=== PATIENT | female | born 1960 | race Caucasian/White ===

== ENCOUNTER 2016-05-05 13:55 | Inpatient (IN) ==
[2016-05-05 14:36] LABS: BASO% 0.1 % (0.0-0.8); EOS# 0.05 X1000 (0.0-0.7); EOS% 0.7 % (0.0-10.0); HEMATOCRIT 48.2 % (37.0-47.0); HEMOGLOBIN 15.1 g/dL (12.0-16.0); IMM GRAN# 0.03 X1000 (0.0-0.04); IMM GRAN% 0.4 % (0.0-0.5); LYMPH# 1.12 X1000 (1.2-3.4); MCH 33.2 PG (27-31); MCHC 31.3 g/dL (33-37); MCV 105.9 FL (81-99); MONO# 0.43 X1000 (0.11-0.59); MONO% 5.8 % (1.7-9.3); MPV 10.9 FL (7.4-10.4); PLT 170 X1000 (130-400); RBC 4.55 XMIL (4.2-5.4)
[2016-05-05 14:46] LABS: AGAP 9; ALBUMIN 3.7 g/dL (3.5-5.0); ALKALINE PHOSPHATASE 85 U/L (32-104); BUN 14 mg/dL (8-22); CALCIUM 8.5 mg/dL (8.8-10.2); CHLORIDE 95 mmol/L (98-107); CK PROFILE 111 U/L (24-173); COSMO 285; GOT 6 U/L (10-30); GPT 14 U/L (10-36); POTASSIUM 4.1 mmol/L (3.5-5.1); SODIUM 139 mmol/L (136-145); TCO2 35 mmol/L (25-35); TOTAL BILIRUBIN 0.47 mg/dL (0.20-1.00); TOTAL PROTEIN 6.6 g/dL (6.3-8.3)
[2016-05-05 14:48] LABS: INR 0.97; PROTIME 10.2 Seconds (9.2-11.7); PTT 25.7 Seconds (22.0-36.0)
[2016-05-05 15:08] LABS: MANUAL DIFF NEEDED? NO
--- NOTE | 2016-05-05 15:11 | Diag Imaging Result Document ---
PROCEDURE NAME: HEAD W/O CONTRAST - 05/05/2016 CT HEAD WITHOUT CONTRAST: COMPARISON: None available. FINDINGS: There is no discrete intracranial mass, mass effect, or intracranial hemorrhage. There is no evidence of hydrocephalus. There is no evidence of acute infarct given the limited sensitivity of CT versus MRI. The surrounding soft tissues and bony structures are essentially unremarkable. IMPRESSION: No evidence of acute intracranial pathology.
[2016-05-05 15:23] LABS: URINE CULTURE NEEDED? NO; URINE SOURCE CLEAN CATCH
[2016-05-05 15:38] LABS: UR AMPHETAMINES QUAL NONE DETECTED (NONE DETECT); UR BARBITUATES QUAL NONE DETECTED (NONE DETECT); UR BENZODIAZEPIN QUAL NONE DETECTED (NONE DETECT); UR CANNABINOIDS QUAL NONE DETECTED (NONE DETECT); UR COCAINE QUAL NONE DETECTED (NONE DETECT); UR METHADONE QUAL NONE DETECTED (NONE DETECT); UR OPIATES QUAL PRESUMPTIVE POSITIVE (NONE DETECT); UR OXYCODONE QUAL NONE DETECTED (NONE DETECT); UR PCP QUAL NONE DETECTED (NONE DETECT)
[2016-05-05 15:42] LABS: BILIRUBIN URINE NEGATIVE (NEGATIVE); BLOOD URINE TRACE (NEGATIVE); COLOR YELLOW; GLUCOSE URINE >1000 mg/dL (NEGATIVE); LEUKOCYTES URINE NEGATIVE (NEGATIVE); NITRITE URINE NEGATIVE (NEGATIVE); PH URINE 7.5; PROTEIN URINE NEGATIVE (NEGATIVE); SP GRAVITY URINE 1.025; TURBIDITY URINE CLEAR (CLEAR); UROBILINOGEN URINE 2 mg/dL (NORMAL)
[2016-05-05 15:44] LABS: URINE MICRO REVIEW NEEDED? YES
[2016-05-05 15:47] LABS: UR EPITHELIAL CELLS <10 /HPF (<10); URINE BACTERIA NEGATIVE /HPF; URINE RBC <10 /HPF (<10); URINE WBC <10 /HPF (<10)
[2016-05-05 15:52] LABS: URINE CASTS NONE SEEN; URINE CRYSTALS NONE SEEN; URINE SMALL ROUND CELLS NONE SEEN
--- NOTE | 2016-05-05 16:20 | PROVIDER DOCUMENTATION ---
HPI-Neurological Disorder - General Source: patient, family () - History of Present Illness-Neuro Headache Location: denies: frontal, temporal, occipital, parietal, global Severity: reports: mild Onset/Duration: reports: unsure Timing: reports: still present Context: reports: other (confusion) Character of Altered Mental Status: reports: confused, agitated, trouble concentrating. denies: disoriented, combative, unresponsive, seizure activity, decreased responsiveness, unchanged from baseline Any recent trauma/injury?: reports: none Character of Deficits: denies: new weakness, altered sensation, vision problem/ glaucoma, impaired speech, impaired swallowing, decreased ability to stand, decreased ability to walk, falling New weakness or altered sensation location:: reports: none Cognitive Baseline: alert, oriented x3 Gait Baseline: walks without assistance Associated Symptoms: denies: short of breath, headache, decreased ability to walk or stand, fainting, dizziness, confusion, chest pain, neck/back pain, fatigue, fever/chills, insomnia, loss of consciousness, muscle spasms, nausea, numbness in legs/feet, paresthesia, diaphoretic, ringing in ears, seizures, sleepy, slurred speech, tingling in legs/feet, trouble walking, vomiting, vision changes, weakness Similar Symptoms Previously?: Yes Recently seen or treated by another doctor?: No <Olga Knapp - Last Filed: 05/05/16 16:38> <Abdulaziz Taveras - Last Filed: 05/05/16 17:19> - General Chief Complaint: Altered Mental Status Stated Complaint: confusion/trouble remembering Time Seen by Provider: 05/05/16 16:05 Allergies/Adverse Reactions: Patient Allergies Allergy/AdvReac Type Severity Reaction Status Date / Time acetaminophen Allergy Mild VOMITING Verified 07/11/15 19:28 [From Darvocet-N 100] codeine [Codeine] Allergy Mild VOMIT Verified 07/11/15 19:28 propoxyphene napsylate * Allergy Mild VOMITING Verified 07/11/15 19:28 [From Darvocet-N 100] Penicillins Allergy Unknown Verified 07/11/15 19:28 Home Medications: Home Medication List Medication Instructions Recorded Confirmed Last Taken Type Albuterol Sulfate [Proair Hfa] 8.5 gm INH QAM 07/11/15 05/05/16 05/05/16 07:00 History Amiodarone [Cordarone] 200 mg PO DAILY 07/11/15 05/05/16 05/05/16 07:00 History Aspirin 325 mg PO DAILY 07/11/15 05/05/16 05/05/16 07:00 History Ergocalciferol (Vitamin D2) 50,000 unit PO DIRECTED 07/11/15 05/05/16 07:00 History [Vitamin D2] Fluticasone/Salmeterol [Advair 1 each INH DIRECTED 07/11/15 05/05/16 11:00 History 250-50 Diskus] Furosemide 40 mg PO QAM 07/11/15 05/05/16 05/05/16 07:00 History LISINOpril [Prinivil] 10 mg PO DAILY 07/11/15 05/05/16 05/05/16 07:00 History Lorazepam 1 mg PO QPM 07/11/15 05/05/16 05/04/16 20:00 History Omeprazole [Prilosec] 40 mg PO QAM 07/11/15 05/05/16 05/05/16 07:00 History SIMVAstatin [Zocor] 20 mg PO QPM 07/11/15 05/05/16 05/04/16 20:00 History Tiotropium [place] Inhaler 1 puff INH RTDAILY 07/11/15 05/05/16 05/05/16 07:00 History [Spiriva] Insulin Glargine [Lantus] 30 unit SUBQ BID #1 insuln.pen 07/17/15 05/05/1605/05 07:00 Rx Metformin [Glucophage] 1,000 mg PO BID CC #60 tablet 07/17/15 05/05/16 05/05/16 07:00 Rx Hydrocodone/APAP 10 mg/325 mg 1 each PO Q4H PRN PRN #30 tablet 01/22/16 Unknown Rx [[place]-10] - History of Present Illness-Neuro Nature of Presenting Problem: Pt is 55 y/o F presents to the ED with confusion and forgetting things. Pt states was admitted and put in a coma due to not being able to handle her carbon dioxide. Pt states having chronic COPD. Pt states she is a smoker. Pt denies F. Pt states she has been fighting with more due to forgetting things. (Olga Knapp) Review of Systems - Adult - REVIEW OF SYSTEMS - ADULT Constitutional: denies: chills, fever Eyes: denies: blurred vision, double vision Ears, Nose, Mouth & Throat: denies: ear pain, nose pain, throat pain Cardiovascular: denies: chest pain, heart murmur, irregular heart rate Respiratory: denies: cough, shortness of breath, wheezing Gastrointestinal: denies: abdominal pain, diarrhea, frequent heartburn, nausea, vomiting Genitourinary: denies: dysuria, hematuria Musculoskeletal: denies: bone pain, joint pain, neck pain Integumentary: denies: hives, itching, rash Neurological: reports: other (confusion). denies: dizziness/vertigo, headache/ migraines, slurred speech, syncope Psychiatric: reports: no symptoms reported Endocrine: reports: no symptoms reported Hematologic/Lymphatic: reports: no symptoms reported Allergic/Immunologic: reports: no symptoms reported All Other Systems: Reviewed and Negative <Olga Knapp - Last Filed: 05/05/16 16:38> Past History - Adult - PAST MEDICAL HISTORY-ADULT Review of Records: reports: Nursing Assessment Review, Medications Reviewed, Social history reviewed & non-contributory. Major Childhood Illnesses: reports: denies history Cardiovascular: reports: arrhythmia, congenital heart disease, CHF, HTN, hyperlipidemia Respiratory: reports: asthma, COPD Gastrointestinal: reports: denies history Obstetrical/Gynecological: reports: denies history Genitourinary: reports: denies history Musculoskeletal: reports: denies history Neurological: reports: denies history Endocrine/Immune: reports: Diabetes Other Conditions: reports: denies history - PRIOR SURGERIES/PROCEDURES Surgical/Procedure History: reports: reviewed, not pertinent - PRIOR HOSPITALIZATIONS Prior Hospitalizations: reports: for similar symptoms - IMMUNIZATION STATUS Childhood Immunizations: See Nurse Assessment Flu Vaccine: See Nurse Assessment - FAMILY HISTORY Family History: reviewed, not pertinent - SOCIAL HISTORY Smoking: cigarettes, greater than 1 pack/day Provider spent 3-5 mins advising pt. on dangers of tobacco.: discussed smoking cessation Substance Use: denies Living Situation: family <Olga Knapp - Last Filed: 05/05/16 16:38> Physical Exam- Neurological - Physical Exam-Neuro Initial Vital Signs Reviewed: Yes General Appearance: appears well, alert, no apparent distress, obese, anxious Eye Exam: bilateral eye: normal inspection, PERRL, EOMI HENMT: normocephalic/atraumatic, moist mucous membranes, normal ENT inspection, TMs normal, pharynx normal Head Injury: no evidence of injury Neck: non-tender, full range of motion, supple, normal inspection Respiratory: chest non-tender, lungs clear, normal breath sounds, no pleuratic chest pain, no respiratory distress Cardiovascular: normal peripheral pulses, regular rate, rhythm, no edema, no gallop, no JVD, no murmur Abdominal Exam: normal bowel sounds, non tender, soft, no organomegaly, no pulsatile mass Lymphatic: no adenopathy Extremity: normal range of motion, non-tender, normal gait, normal inspection, no pedal edema, no calf tenderness, normal capillary refill resolution specialist Exam: normal hearing, normal speech, PERRL Coordination/Gait: normal finger to nose, normal gait Motor/Sensory: no motor deficit, no sensory deficit, no pronator drift Neurologic: grossly normal Integumentary: normal color, normal turgor, warm/dry Psych/Mental Status: normal mood/affect, oriented x 3 <RaOlga - Last Filed: 05/05/16 16:38> Progress - CT/MRI 1 CT Study: Head Impression: Normal CT Results: NAP <Olga Knapp - Last Filed: 05/05/16 16:38> - XRAY 1 XRAY Study: Chest Comparison with other Films: no changes - CONSULTS/PCP/HOSPITALIST Notification #1 *Consult/PCP/Hospitalist*: Dr. garza Time Discussed: 17:18 Consult Disposition: Admit <Abdulaziz Taveras - Last Filed: 05/05/16 17:19> - PLAN OF CARE/RESULTS Progress/Plan/Lab Results: Laboratory Tests 05/05/16 05/05/16 05/05/16 14:02 14:03 14:03 WBC RBC Hgb Hct MCV MCH MCHC RDW Std Deviation Plt Count MPV Immature Gran % (Auto) Neut % (Auto) Lymph % (Auto) [place] % (Auto) Eos % (Auto) Baso % (Auto) Immature Gran # (Auto) Neut # (Auto) Lymph # (Auto) [place] # (Auto) Eos # (Auto) Baso # (Auto) Segmented Neutrophils PT INR PTT ([place] FS) Sodium Potassium Chloride Carbon Dioxide Anion Gap BUN Creatinine Estimated GFR/1.73 m2 BUN/Creatinine Ratio Glucose POC Glucose Calculated Osmolality Calcium Total Bilirubin AST ALT Alkaline Phosphatase Creatine Kinase Troponin T < 0.010 Total Protein Albumin Globulin Albumin/Globulin Ratio Urine Source CLEAN CATCH Urine Color YELLOW Urine Turbidity CLEAR Urine pH 7.5 Ur Specific [place] 1.025 Urine Protein NEGATIVE Ur Glucose (Stick) >1000 A Ur Ketones (Stick) TRACE A Urine Blood TRACE A Urine Nitrite NEGATIVE Urine Bilirubin NEGATIVE Urobilinogen Dipstick 2 A Urine Leukocytes NEGATIVE Urine WBC (Auto) <10 Urine RBC (Auto) <10 U Epithel Cells (Auto) <10 Urine Bacteria (Auto) NEGATIVE Urine Crystals NONE SEEN Small Round Cells NONE SEEN Urine Casts NONE SEEN Urine Yeast-like Cells PRESENT Urine Opiates Screen PRESUMPTIVE POSITIVE A Ur Oxycodone Screen NONE DETECTED Ur Methadone, Qual NONE DETECTED Ur Barbiturates Screen NONE DETECTED Ur Phencyclidine Scrn NONE DETECTED Ur Amphetamines Screen NONE DETECTED U Benzodiazepines Scrn NONE DETECTED Urine Cocaine Screen NONE DETECTED U Cannabinoids Screen NONE DETECTED Plasma/Serum Ethyl Alc 05/05/16 05/05/16 05/05/16 14:08 14:09 14:09 WBC 7.47 RBC 4.55 Hgb 15.1 Hct 48.2 H MCV 105.9 H MCH 33.2 H MCHC 31.3 L RDW Std Deviation 14.0 Plt Count 170 MPV 10.9 H Immature Gran % (Auto) 0.4 Neut % (Auto) 78.0 H Lymph % (Auto) 15.0 L [place] % (Auto) 5.8 Eos % (Auto) 0.7 Baso % (Auto) 0.1 Immature Gran # (Auto) 0.03 Neut # (Auto) 5.83 Lymph # (Auto) 1.12 L [place] # (Auto) 0.43 Eos # (Auto) 0.05 Baso # (Auto) 0.01 Segmented Neutrophils Not Reportable PT INR PTT ([place] FS) Sodium Potassium Chloride Carbon Dioxide Anion Gap BUN Creatinine Estimated GFR/1.73 m2 BUN/Creatinine Ratio Glucose POC Glucose 200 H Calculated Osmolality Calcium Total Bilirubin AST ALT Alkaline Phosphatase Creatine Kinase Troponin T Total Protein Albumin Globulin Albumin/Globulin Ratio Urine Source Urine Color Urine Turbidity Urine pH Ur Specific [place] Urine Protein Ur Glucose (Stick) Ur Ketones (Stick) Urine Blood Urine Nitrite Urine Bilirubin Urobilinogen Dipstick Urine Leukocytes Urine WBC (Auto) Urine RBC (Auto) U Epithel Cells (Auto) Urine Bacteria (Auto) Urine Crystals Small Round Cells Urine Casts Urine Yeast-like Cells Urine Opiates Screen Ur Oxycodone Screen Ur Methadone, Qual Ur Barbiturates Screen Ur Phencyclidine Scrn Ur Amphetamines Screen U Benzodiazepines Scrn Urine Cocaine Screen U Cannabinoids Screen Plasma/Serum Ethyl Alc 05/05/16 05/05/16 14:09 14:09 WBC RBC Hgb Hct MCV MCH MCHC RDW Std Deviation Plt Count MPV Immature Gran % (Auto) Neut % (Auto) Lymph % (Auto) [place] % (Auto) Eos % (Auto) Baso % (Auto) Immature Gran # (Auto) Neut # (Auto) Lymph # (Auto) [place] # (Auto) Eos # (Auto) Baso # (Auto) Segmented Neutrophils PT 10.2 INR 0.97 PTT (Actin FS) 25.7 Sodium 139 Potassium 4.1 Chloride 95 L Carbon Dioxide 35 Anion Gap 9 BUN 14 Creatinine 0.7 Estimated GFR/1.73 m2 > 60 BUN/Creatinine Ratio 20 Glucose 232 H POC Glucose Calculated Osmolality 285 Calcium 8.5 L Total Bilirubin 0.47 AST 6 L ALT 14 Alkaline Phosphatase 85 Creatine Kinase 111 Troponin T Total Protein 6.6 Albumin 3.7 Globulin 2.9 Albumin/Globulin Ratio 1.3 Urine Source Urine Color Urine Turbidity Urine pH Ur Specific [place] Urine Protein Ur Glucose (Stick) Ur Ketones (Stick) Urine Blood Urine Nitrite Urine Bilirubin Urobilinogen Dipstick Urine Leukocytes Urine WBC (Auto) Urine RBC (Auto) U Epithel Cells (Auto) Urine Bacteria (Auto) Urine Crystals Small Round Cells Urine Casts Urine Yeast-like Cells Urine Opiates Screen Ur Oxycodone Screen Ur Methadone, Qual Ur Barbiturates Screen Ur Phencyclidine Scrn Ur Amphetamines Screen U Benzodiazepines Scrn Urine Cocaine Screen U Cannabinoids Screen Plasma/Serum Ethyl Alc Orders Category Date Time Status Cardiac Monitoring DIRECTED Care 05/05/16 14:02 Active Finger Stick Blood Sugar (ED) DIRECTED Care 05/05/16 14:02 Active Oxygen Therapy- ED Nursing DIRECTED Care 05/05/16 14:02 Active Saline Loc NOW Care 05/05/16 14:02 Active HEAD W/O CONTRAST [CT] Stat Exams 05/05/16 14:03 Draft ABG [RESP] Routine Lab 05/05/16 16:15 Ordered ALCOHOL BLOOD Stat Lab 05/05/16 14:09 Completed AMMONIA [CHEM] Stat Lab 05/05/16 16:15 Uncollected CBC WITH ELECTRONIC DIFF [HEME] Stat Lab 05/05/16 14:09 Completed CK PROFILE [SP CHEM] Stat Lab 05/05/16 14:09 Completed COMPREHENSIVE METABOLIC PANEL [CHEM] Stat Lab 05/05/16 14:09 Completed PROTIME WITH INR [COAG] Stat Lab 05/05/16 14:09 Completed PTT [COAG] Stat Lab 05/05/16 14:09 Completed TROPONIN T Stat Lab 05/05/16 14:02 Completed URINALYSIS W/POSS RFLX CULT [URINALYSIS] Stat Lab 05/05/16 14:03 Completed URINE DRUG SCREEN Stat Lab 05/05/16 14:03 Completed URINE MANUAL MICROSCOPIC [URINALYSIS] Stat Lab 05/05/16 14:03 Completed Pulse Oximetry Stat Oth 05/05/16 14:02 Active Vital Signs - 24 hr 05/05/16 13:59 Temperature 98.0 F Pulse Rate 88 Respiratory 20 Rate Blood Pressure 156/105 O2 Sat by Pulse 95 Oximetry (Olga Knapp) Laboratory Tests 05/05/16 05/05/16 05/05/16 14:02 14:03 14:03 WBC RBC Hgb Hct MCV MCH MCHC RDW Std Deviation Plt Count MPV Immature Gran % (Auto) Neut % (Auto) Lymph % (Auto) [place] % (Auto) Eos % (Auto) Baso % (Auto) Immature Gran # (Auto) Neut # (Auto) Lymph # (Auto) [place] # (Auto) Eos # (Auto) Baso # (Auto) Segmented Neutrophils PT INR PTT (Actin FS) Specimen Type Sample Site pH pCO2 pO2 HCO3 Base Excess Oxyhemoglobin ABG O2 Sat (Calculated) ABG O2 Saturation ABG Carboxyhemoglobin ABG Methemoglobin [place] Test A-a O2 Difference Total Hemoglobin Lactate Liter Flow Blood Gas Modality FiO2 % Sodium Potassium Chloride Carbon Dioxide Anion Gap BUN Creatinine Estimated GFR/1.73 m2 BUN/Creatinine Ratio Glucose POC Glucose Calculated Osmolality Calcium Total Bilirubin AST ALT Alkaline Phosphatase Ammonia Creatine Kinase Troponin T < 0.010 Total Protein Albumin Globulin Albumin/Globulin Ratio Urine Source CLEAN CATCH Urine Color YELLOW Urine Turbidity CLEAR Urine pH 7.5 Ur Specific [place] 1.025 Urine Protein NEGATIVE Ur Glucose (Stick) >1000 A Ur Ketones (Stick) TRACE A Urine Blood TRACE A Urine Nitrite NEGATIVE Urine Bilirubin NEGATIVE Urobilinogen Dipstick 2 A Urine Leukocytes NEGATIVE Urine WBC (Auto) <10 Urine RBC (Auto) <10 U Epithel Cells (Auto) <10 Urine Bacteria (Auto) NEGATIVE Urine Crystals NONE SEEN Small Round Cells NONE SEEN Urine Casts NONE SEEN Urine Yeast-like Cells PRESENT Urine Opiates Screen PRESUMPTIVE POSITIVE A Ur Oxycodone Screen NONE DETECTED Ur Methadone, Qual NONE DETECTED Ur Barbiturates Screen NONE DETECTED Ur Phencyclidine Scrn NONE DETECTED Ur Amphetamines Screen NONE DETECTED U Benzodiazepines Scrn NONE DETECTED Urine Cocaine Screen NONE DETECTED U Cannabinoids Screen NONE DETECTED Plasma/Serum Ethyl Alc 05/05/16 05/05/16 05/05/16 14:08 14:09 14:09 WBC 7.47 RBC 4.55 Hgb 15.1 Hct 48.2 H MCV 105.9 H MCH 33.2 H MCHC 31.3 L RDW Std Deviation 14.0 Plt Count 170 MPV 10.9 H Immature Gran % (Auto) 0.4 Neut % (Auto) 78.0 H Lymph % (Auto) 15.0 L [place] % (Auto) 5.8 Eos % (Auto) 0.7 Baso % (Auto) 0.1 Immature Gran # (Auto) 0.03 Neut # (Auto) 5.83 Lymph # (Auto) 1.12 L [place] # (Auto) 0.43 Eos # (Auto) 0.05 Baso # (Auto) 0.01 Segmented Neutrophils Not Reportable PT INR PTT (Actin FS) Specimen Type Sample Site pH pCO2 pO2 HCO3 Base Excess Oxyhemoglobin ABG O2 Sat (Calculated) ABG O2 Saturation ABG Carboxyhemoglobin ABG Methemoglobin [place] Test A-a O2 Difference Total Hemoglobin Lactate Liter Flow Blood Gas Modality FiO2 % Sodium Potassium Chloride Carbon Dioxide Anion Gap BUN Creatinine Estimated GFR/1.73 m2 BUN/Creatinine Ratio Glucose POC Glucose 200 H Calculated Osmolality Calcium Total Bilirubin AST ALT Alkaline Phosphatase Ammonia Creatine Kinase Troponin T Total Protein Albumin Globulin Albumin/Globulin Ratio Urine Source Urine Color Urine Turbidity Urine pH Ur Specific [place] Urine Protein Ur Glucose (Stick) Ur Ketones (Stick) Urine Blood Urine Nitrite Urine Bilirubin Urobilinogen Dipstick Urine Leukocytes Urine WBC (Auto) Urine RBC (Auto) U Epithel Cells (Auto) Urine Bacteria (Auto) Urine Crystals Small Round Cells Urine Casts Urine Yeast-like Cells Urine Opiates Screen Ur Oxycodone Screen Ur Methadone, Qual Ur Barbiturates Screen Ur Phencyclidine Scrn Ur Amphetamines Screen U Benzodiazepines Scrn Urine Cocaine Screen U Cannabinoids Screen Plasma/Serum Ethyl Alc 05/05/16 05/05/16 05/05/16 14:09 14:09 16:36 WBC RBC Hgb Hct MCV MCH MCHC RDW Std Deviation Plt Count MPV Immature Gran % (Auto) Neut % (Auto) Lymph % (Auto) [place] % (Auto) Eos % (Auto) Baso % (Auto) Immature Gran # (Auto) Neut # (Auto) Lymph # (Auto) [place] # (Auto) Eos # (Auto) Baso # (Auto) Segmented Neutrophils PT 10.2 INR 0.97 PTT (Actin FS) 25.7 Specimen Type Sample Site pH pCO2 pO2 HCO3 Base Excess Oxyhemoglobin ABG O2 Sat (Calculated) ABG O2 Saturation ABG Carboxyhemoglobin ABG Methemoglobin [place] Test A-a O2 Difference Total Hemoglobin Lactate Liter Flow Blood Gas Modality FiO2 % Sodium 139 Potassium 4.1 Chloride 95 L Carbon Dioxide 35 Anion Gap 9 BUN 14 Creatinine 0.7 Estimated GFR/1.73 m2 > 60 BUN/Creatinine Ratio 20 Glucose 232 H POC Glucose Calculated Osmolality 285 Calcium 8.5 L Total Bilirubin 0.47 AST 6 L ALT 14 Alkaline Phosphatase 85 Ammonia 36 Creatine Kinase 111 Troponin T Total Protein 6.6 Albumin 3.7 Globulin 2.9 Albumin/Globulin Ratio 1.3 Urine Source Urine Color Urine Turbidity Urine pH Ur Specific [place] Urine Protein Ur Glucose (Stick) Ur Ketones (Stick) Urine Blood Urine Nitrite Urine Bilirubin Urobilinogen Dipstick Urine Leukocytes Urine WBC (Auto) Urine RBC (Auto) U Epithel Cells (Auto) Urine Bacteria (Auto) Urine Crystals Small Round Cells Urine Casts Urine Yeast-like Cells Urine Opiates Screen Ur Oxycodone Screen Ur Methadone, Qual Ur Barbiturates Screen Ur Phencyclidine Scrn Ur Amphetamines Screen U Benzodiazepines Scrn Urine Cocaine Screen U Cannabinoids Screen Plasma/Serum Ethyl Alc 05/05/16 16:39 WBC RBC Hgb Hct MCV MCH MCHC RDW Std Deviation Plt Count MPV Immature Gran % (Auto) Neut % (Auto) Lymph % (Auto) [place] % (Auto) Eos % (Auto) Baso % (Auto) Immature Gran # (Auto) Neut # (Auto) Lymph # (Auto) [place] # (Auto) Eos # (Auto) Baso # (Auto) Segmented Neutrophils PT INR PTT (Actin FS) Specimen Type ARTERIAL Sample Site L RADIAL pH 7.36 pCO2 68 H* pO2 67 HCO3 32.2 H Base Excess 9.7 H Oxyhemoglobin 89.8 L* ABG O2 Sat (Calculated) 19.8 ABG O2 Saturation 97.5 ABG Carboxyhemoglobin 6.20 H* ABG Methemoglobin 1.6 H [place] Test YES A-a O2 Difference 76.0 Total Hemoglobin 15.7 Lactate 1.40 Liter Flow 3.0 Blood Gas Modality CANNULA FiO2 % 32.0 Sodium Potassium Chloride Carbon Dioxide Anion Gap BUN Creatinine Estimated GFR/1.73 m2 BUN/Creatinine Ratio Glucose POC Glucose Calculated Osmolality Calcium Total Bilirubin AST ALT Alkaline Phosphatase Ammonia Creatine Kinase Troponin T Total Protein Albumin Globulin Albumin/Globulin Ratio Urine Source Urine Color Urine Turbidity Urine pH Ur Specific [place] Urine Protein Ur Glucose (Stick) Ur Ketones (Stick) Urine Blood Urine Nitrite Urine Bilirubin Urobilinogen Dipstick Urine Leukocytes Urine WBC (Auto) Urine RBC (Auto) U Epithel Cells (Auto) Urine Bacteria (Auto) Urine Crystals Small Round Cells Urine Casts Urine Yeast-like Cells Urine Opiates Screen Ur Oxycodone Screen Ur Methadone, Qual Ur Barbiturates Screen Ur Phencyclidine Scrn Ur Amphetamines Screen U Benzodiazepines Scrn Urine Cocaine Screen U Cannabinoids Screen Plasma/Serum Ethyl Alc Orders Category Date Time Status Cardiac Monitoring DIRECTED Care 05/05/16 14:02 Active Finger Stick Blood Sugar (ED) DIRECTED Care 05/05/16 14:02 Active Oxygen Therapy- ED Nursing DIRECTED Care 05/05/16 14:02 Active Saline Loc NOW Care 05/05/16 14:02 Active CHEST-2 VIEWS [RAD] Stat Exams 05/05/16 16:25 Draft HEAD W/O CONTRAST [CT] Stat Exams 05/05/16 14:03 Draft ABG [RESP] Routine Lab 05/05/16 16:39 Completed ALCOHOL BLOOD Stat Lab 05/05/16 14:09 Completed AMMONIA [CHEM] Stat Lab 05/05/16 16:36 Completed CBC WITH ELECTRONIC DIFF [HEME] Stat Lab 05/05/16 14:09 Completed CK PROFILE [SP CHEM] Stat Lab 05/05/16 14:09 Completed COMPREHENSIVE METABOLIC PANEL [CHEM] Stat Lab 05/05/16 14:09 Completed PROTIME WITH INR [COAG] Stat Lab 05/05/16 14:09 Completed PTT [COAG] Stat Lab 05/05/16 14:09 Completed TROPONIN T Stat Lab 05/05/16 14:02 Completed URINALYSIS W/POSS RFLX CULT [URINALYSIS] Stat Lab 05/05/16 14:03 Completed URINE DRUG SCREEN Stat Lab 05/05/16 14:03 Completed URINE MANUAL MICROSCOPIC [URINALYSIS] Stat Lab 05/05/16 14:03 Completed Pulse Oximetry Stat Oth 05/05/16 14:02 Active Vital Signs Temp Pulse Resp BP Pulse Ox 05/05/16 13:59 98.0 F 88 20 156/105 95 acetaminophen [From Darvocet-N 100] Allergy (Mild, Verified 07/11/15 19:28) VOMITING codeine [Codeine] Allergy (Mild, Verified 07/11/15 19:28) VOMIT propoxyphene napsylate * [From Darvocet-N 100] Allergy (Mild, Verified 07/11/15 19:28) VOMITING Penicillins Allergy (Verified 07/11/15 19:28) Unknown Albuterol Sulfate [Proair Hfa] 8.5 gm INH QAM 07/11/15 Amiodarone [Cordarone] 200 mg PO DAILY 07/11/15 Aspirin 325 mg PO DAILY 07/11/15 Ergocalciferol (Vitamin D2) [Vitamin D2] 50,000 unit PO DIRECTED 07/11/15 Fluticasone/Salmeterol [Advair 250-50 Diskus] 1 each INH DIRECTED 07/11/15 Furosemide 40 mg PO QAM 07/11/15 LISINOpril [Prinivil] 10 mg PO DAILY 07/11/15 Lorazepam 1 mg PO QPM 07/11/15 Omeprazole [Prilosec] 40 mg PO QAM 07/11/15 SIMVAstatin [Zocor] 20 mg PO QPM 07/11/15 Tiotropium [place] Inhaler [Spiriva] 1 puff INH RTDAILY 07/11/15 Insulin Glargine [Lantus] 30 unit SUBQ BID #1 insuln.pen 07/17/15 Metformin [Glucophage] 1,000 mg PO BID CC #60 tablet 07/17/15 Hydrocodone/APAP 10 mg/325 mg [[place]-10] 1 each PO Q4H PRN PRN #30 tablet I&O 05/04/16 05/05/16 05/06/16 06:59 06:59 06:59 Output Total 20 Balance -20 Laboratory 05/05/16 05/05/16 05/05/16 16:39 16:36 14:09 WBC RBC Hgb Hct MCV MCH MCHC RDW Std Deviation Plt Count MPV Immature Gran % (Auto) Neut % (Auto) Lymph % (Auto) [place] % (Auto) Eos % (Auto) Baso % (Auto) Immature Gran # (Auto) Neut # (Auto) Lymph # (Auto) [place] # (Auto) Eos # (Auto) Baso # (Auto) Segmented Neutrophils PT 10.2 INR 0.97 PTT (Actin FS) 25.7 Specimen Type ARTERIAL Sample Site L RADIAL pH 7.36 pCO2 68 H* pO2 67 HCO3 32.2 H Base Excess 9.7 H Oxyhemoglobin 89.8 L* ABG O2 Sat (Calculated) 19.8 ABG O2 Saturation 97.5 ABG Carboxyhemoglobin 6.20 H* ABG Methemoglobin 1.6 H [place] Test YES A-a O2 Difference 76.0 Total Hemoglobin 15.7 Lactate 1.40 Liter Flow 3.0 Blood Gas Modality [place]UL[place] FiO2 % 32.0 Sodium Potassium Chloride Carbon Dioxide Anion Gap BUN Creatinine Estimated GFR/1.73 m2 BUN/Creatinine Ratio Glucose POC Glucose Calculated Osmolality Calcium Total Bilirubin AST ALT Alkaline Phosphatase Ammonia 36 Creatine Kinase Troponin T Total Protein Albumin Globulin Albumin/Globulin Ratio Urine Source Urine Color Urine Turbidity Urine pH Ur Specific [place] Urine Protein Ur Glucose (Stick) Ur Ketones (Stick) Urine Blood Urine Nitrite Urine Bilirubin Urobilinogen Dipstick Urine Leukocytes Urine WBC (Auto) Urine RBC (Auto) U Epithel Cells (Auto) Urine Bacteria (Auto) Urine Crystals Small Round Cells Urine Casts Urine Yeast-like Cells Urine Opiates Screen Ur Oxycodone Screen Ur Methadone, Qual Ur Barbiturates Screen Ur Phencyclidine Scrn Ur Amphetamines Screen U Benzodiazepines Scrn Urine Cocaine Screen U Cannabinoids Screen Plasma/Serum Ethyl Alc 05/05/16 05/05/16 05/05/16 14:09 14:09 14:09 WBC 7.47 RBC 4.55 Hgb 15.1 Hct 48.2 H MCV 105.9 H MCH 33.2 H MCHC 31.3 L RDW Std Deviation 14.0 Plt Count 170 MPV 10.9 H Immature Gran % (Auto) 0.4 Neut % (Auto) 78.0 H Lymph % (Auto) 15.0 L [place] % (Auto) 5.8 Eos % (Auto) 0.7 Baso % (Auto) 0.1 Immature Gran # (Auto) 0.03 Neut # (Auto) 5.83 Lymph # (Auto) 1.12 L [place] # (Auto) 0.43 Eos # (Auto) 0.05 Baso # (Auto) 0.01 Segmented Neutrophils Not Reportable PT INR PTT (Actin FS) Specimen Type Sample Site pH pCO2 pO2 HCO3 Base Excess Oxyhemoglobin ABG O2 Sat (Calculated) ABG O2 Saturation ABG Carboxyhemoglobin ABG Methemoglobin [place] Test A-a O2 Difference Total Hemoglobin Lactate Liter Flow Blood Gas Modality FiO2 % Sodium 139 Potassium 4.1 Chloride 95 L Carbon Dioxide 35 Anion Gap 9 BUN 14 Creatinine 0.7 Estimated GFR/1.73 m2 > 60 BUN/Creatinine Ratio 20 Glucose 232 H POC Glucose Calculated Osmolality 285 Calcium 8.5 L Total Bilirubin 0.47 AST 6 L ALT 14 Alkaline Phosphatase 85 Ammonia Creatine Kinase 111 Troponin T Total Protein 6.6 Albumin 3.7 Globulin 2.9 Albumin/Globulin Ratio 1.3 Urine Source Urine Color Urine Turbidity Urine pH Ur Specific [place] Urine Protein Ur Glucose (Stick) Ur Ketones (Stick) Urine Blood Urine Nitrite Urine Bilirubin Urobilinogen Dipstick Urine Leukocytes Urine WBC (Auto) Urine RBC (Auto) U Epithel Cells (Auto) Urine Bacteria (Auto) Urine Crystals Small Round Cells Urine Casts Urine Yeast-like Cells Urine Opiates Screen Ur Oxycodone Screen Ur Methadone, Qual Ur Barbiturates Screen Ur Phencyclidine Scrn Ur Amphetamines Screen U Benzodiazepines Scrn Urine Cocaine Screen U Cannabinoids Screen Plasma/Serum Ethyl Alc 05/05/16 05/05/16 05/05/16 14:08 14:03 14:03 WBC RBC Hgb Hct MCV MCH MCHC RDW Std Deviation Plt Count MPV Immature Gran % (Auto) Neut % (Auto) Lymph % (Auto) [place] % (Auto) Eos % (Auto) Baso % (Auto) Immature Gran # (Auto) Neut # (Auto) Lymph # (Auto) [place] # (Auto) Eos # (Auto) Baso # (Auto) Segmented Neutrophils PT INR PTT (Actin FS) Specimen Type Sample Site pH pCO2 pO2 HCO3 Base Excess Oxyhemoglobin ABG O2 Sat (Calculated) ABG O2 Saturation ABG Carboxyhemoglobin ABG Methemoglobin Devonte Test A-a O2 Difference Total Hemoglobin Lactate Liter Flow Blood Gas Modality FiO2 % Sodium Potassium Chloride Carbon Dioxide Anion Gap BUN Creatinine Estimated GFR/1.73 m2 BUN/Creatinine Ratio Glucose POC Glucose 200 H Calculated Osmolality Calcium Total Bilirubin AST ALT Alkaline Phosphatase Ammonia Creatine Kinase Troponin T Total Protein Albumin Globulin Albumin/Globulin Ratio Urine Source CLEAN CATCH Urine Color YELLOW Urine Turbidity CLEAR Urine pH 7.5 Ur Specific [place] 1.025 Urine Protein NEGATIVE Ur Glucose (Stick) >1000 A Ur Ketones (Stick) TRACE A Urine Blood TRACE A Urine Nitrite NEGATIVE Urine Bilirubin NEGATIVE Urobilinogen Dipstick 2 A Urine Leukocytes NEGATIVE Urine WBC (Auto) <10 Urine RBC (Auto) <10 U Epithel Cells (Auto) <10 Urine Bacteria (Auto) NEGATIVE Urine Crystals NONE SEEN Small Round Cells NONE SEEN Urine Casts NONE SEEN Urine Yeast-like Cells PRESENT Urine Opiates Screen PRESUMPTIVE POSITIVE A Ur Oxycodone Screen NONE DETECTED Ur Methadone, Qual NONE DETECTED Ur Barbiturates Screen NONE DETECTED Ur Phencyclidine Scrn NONE DETECTED Ur Amphetamines Screen NONE DETECTED U Benzodiazepines Scrn NONE DETECTED Urine Cocaine Screen NONE DETECTED U Cannabinoids Screen NONE DETECTED Plasma/Serum Ethyl Alc 05/05/16 14:02 WBC RBC Hgb Hct MCV MCH MCHC RDW Std Deviation Plt Count MPV Immature Gran % (Auto) Neut % (Auto) Lymph % (Auto) [place] % (Auto) Eos % (Auto) Baso % (Auto) Immature Gran # (Auto) Neut # (Auto) Lymph # (Auto) [place] # (Auto) Eos # (Auto) Baso # (Auto) Segmented Neutrophils PT INR PTT (Actin FS) Specimen Type Sample Site pH pCO2 pO2 HCO3 Base Excess Oxyhemoglobin ABG O2 Sat (Calculated) ABG O2 Saturation ABG Carboxyhemoglobin ABG Methemoglobin Devonte Test A-a O2 Difference Total Hemoglobin Lactate Liter Flow Blood Gas Modality FiO2 % Sodium Potassium Chloride Carbon Dioxide Anion Gap BUN Creatinine Estimated GFR/1.73 m2 BUN/Creatinine Ratio Glucose POC Glucose Calculated Osmolality Calcium Total Bilirubin AST ALT Alkaline Phosphatase Ammonia Creatine Kinase Troponin T < 0.010 Total Protein Albumin Globulin Albumin/Globulin Ratio Urine Source Urine Color Urine Turbidity Urine pH Ur Specific [place] Urine Protein Ur Glucose (Stick) Ur Ketones (Stick) Urine Blood Urine Nitrite Urine Bilirubin Urobilinogen Dipstick Urine Leukocytes Urine WBC (Auto) Urine RBC (Auto) U Epithel Cells (Auto) Urine Bacteria (Auto) Urine Crystals Small Round Cells Urine Casts Urine Yeast-like Cells Urine Opiates Screen Ur Oxycodone Screen Ur Methadone, Qual Ur Barbiturates Screen Ur Phencyclidine Scrn Ur Amphetamines Screen U Benzodiazepines Scrn Urine Cocaine Screen U Cannabinoids Screen Plasma/Serum Ethyl Alc Pt continues to have difficulty remembering things in the room and gets very upset and emotional. i believe this may be due to carboxyhemoglobinemia. Will discuss c hospitalist. (Abdulaziz Taveras) Departure <Olga Knapp - Last Filed: 05/05/16 16:38> - Departure Time of Disposition Order: 17:15 Certified Medical Emergency: Emergent <Abdulaziz Taveras - Last Filed: 05/05/16 17:19> - Departure DIAGNOSIS: Memory deficit Carboxyhemoglobinemia Qualifiers: Encounter type: initial encounter Injury intent: undetermined intent Qualified Code(s): T58.94XA - Toxic effect of carbon monoxide from unspecified source, undetermined, initial encounter Altered mental status, unspecified Qualifiers: Altered mental status type: unspecified Qualified Code(s): R41.82 - Altered mental status, unspecified Disposition: ADMITTED INPATIENT 09 Condition: Stable Referrals: Laura Thompson [Primary Care Provider] - Attestation - Scribe Verification/Attestation Scribe:: Olga Knapp Acting as Scribe for:: Abdulaziz Taveras Scribe documention review:: This chart was documented by a scribe and accurately reflects the service the provider performed and the decisions made by the provider. <Olga Knapp - Last Filed: 05/05/16 16:38> - Physician/ MARTIN Attestation Patient care was provided by Advanced Practice Provider:: Yes Advanced Practice Provider:: Abdulaziz Taveras Advanced Practice Provider documentation review:: The Mid-level provider documentation, treatment plan and medical decision making was reviewed by the physician who agrees with all treatment and medical decision making by the P. <Abdulaziz Taveras - Last Filed: 05/05/16 17:19> Physician Attestation
[2016-05-05 16:43] LABS: ALLEN TEST YES; BE 9.7 mmoll (-3.0-3.0); BLOOD TYPE ARTERIAL; DRAW SITE L RADIAL; METHB 1.6 % (0.0-1.5); O2(CT) 19.8 mL/dL (15.0-23.0); PO2(98.6) 67 mmHg (60-100); SAMPLE BLOOD; SAO2 97.5 % (95.0-100.0); THB 15.7 g/dL (11.5-17.4); pH(98.6) 7.36 (7.35-7.45)
[2016-05-05 16:50] LABS: MODALITY CANNULA; PCO2(98.6) 68 mmHg (35-45)
--- NOTE | 2016-05-05 17:16 | Diag Imaging Result Document ---
PROCEDURE NAME: CHEST-2 VIEWS - 05/05/2016 SEATED AP AND LATERAL RADIOGRAPH OF THE CHEST: COMPARISON: 01/20/2016. FINDINGS: Inspiration is suboptimal. There is poor penetration and overlying soft tissue attenuation. However, the lungs appear to be clear. There is no definite pleural fluid collection. Cardiac silhouette may be borderline prominent, but this is probably due to magnification related to AP technique. Heart is stable. IMPRESSION: Poor inspiration and questionable borderline prominent heart that is stable. No definite acute pathology, otherwise.
[2016-05-05] MEDS ORDERED: ULTRAM PO PRN (21:05)
[2016-05-05] MEDS ORDERED: VITAMIN D PO SCH (21:05)
[2016-05-05] MEDS ORDERED: ZOFRAN IV PRN (21:05)
[2016-05-05] MEDS ORDERED: ZITHROMAX 500 MG/NS 250 ML IV SCH (21:05)
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
[2016-05-05] MEDS: DUONEB (A & A) INH SCH (23:01)
[2016-05-05] MEDS ORDERED: BLISTEX MEDICATED BERRY LIP BALM TOP ONE (23:02)
[2016-05-05] MEDS: NICODERM PATCH TD SCH (23:17)
[2016-05-05] MEDS: SOLU-MEDROL IV SCH (23:18)
[2016-05-05] MEDS: ZOCOR PO SCH (23:18)
[2016-05-05] MEDS: LANTUS SUBQ SCH (23:47)
[2016-05-05] MEDS: HUMULIN R SUBQ SCH (23:49)
[2016-05-06] MEDS: DUONEB (A & A) INH SCH ×6 (03:38→23:35)
[2016-05-06] MEDS: SOLU-MEDROL IV SCH ×3 (06:12→20:51)
[2016-05-06] MEDS: PROTONIX PO SCH (06:13)
[2016-05-06] MEDS: HUMULIN R SUBQ SCH ×4 (06:13→20:52)
[2016-05-06 06:15] LABS: BASO% 0.1 % (0.0-0.8); HEMATOCRIT 48.5 % (37.0-47.0); HEMOGLOBIN 15.4 g/dL (12.0-16.0); LYMPH# 0.35 X1000 (1.2-3.4); MANUAL DIFF NEEDED? YES; MCHC 31.8 g/dL (33-37); MCV 104.1 FL (81-99); MONO# 0.04 X1000 (0.11-0.59); MONO% 0.6 % (1.7-9.3); MPV 11.1 FL (7.4-10.4); NEUT% 94.3 % (42.2-75.2); PLT 167 X1000 (130-400); RBC 4.66 XMIL (4.2-5.4)
[2016-05-06 06:29] LABS: AGAP 12; ALBUMIN 3.6 g/dL (3.5-5.0); ALKALINE PHOSPHATASE 85 U/L (32-104); BUN 15 mg/dL (8-22); CALCIUM 8.9 mg/dL (8.8-10.2); CHLORIDE 96 mmol/L (98-107); COSMO 290; GOT 7 U/L (10-30); GPT 15 U/L (10-36); POTASSIUM 4.6 mmol/L (3.5-5.1); SODIUM 140 mmol/L (136-145); TCO2 32 mmol/L (25-35); TOTAL BILIRUBIN 0.73 mg/dL (0.20-1.00); TOTAL PROTEIN 6.6 g/dL (6.3-8.3)
[2016-05-06 06:31] LABS: LYMPHS 10 % (21-51); MONO 2 % (1-9)
[2016-05-06 06:43] LABS: FREE T4 1.1 ng/dL (0.93-1.70)
[2016-05-06] MEDS ORDERED: INSULIN PEN NEEDLES ONE (07:32)
[2016-05-06] MEDS: PULMICORT INH SCH ×2 (08:01→20:15)
[2016-05-06] MEDS: NICODERM PATCH TD SCH (08:14)
[2016-05-06] MEDS: ASPIRIN PO SCH (08:14)
[2016-05-06] MEDS: TYLENOL PO PRN ×2 (08:14→21:22)
[2016-05-06] MEDS: LASIX PO SCH (08:15)
[2016-05-06] MEDS: LOVENOX SUBQ SCH (08:16)
[2016-05-06] MEDS: PRINIVIL PO SCH (08:16)
[2016-05-06] MEDS: CORDARONE PO SCH (08:16)
[2016-05-06] MEDS: LANTUS SUBQ SCH ×2 (08:17→20:51)
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
--- NOTE | 2016-05-06 13:17 | PROGRESS NOTE ---
DATE: 05/06/2016 SUBJECTIVE: Her mind is much better. She is feeling better. She did not sleep much last night. She does not sleep most nights. I do not think she has significant obstructive sleep apnea and does not have a CPAP or BiPAP. She says, "What would make my bones hurt and just not feel good?" She also has had some axillary adenitis or some carbuncles, epidermoid cysts, and I told her we would try some antibiotic soap and that it is important she try and keep that area clean. I may get Yesenia Tran to give some suggestions, too. OBJECTIVE: Vital Signs: Temperature 98.3 degrees, pulse 80, respirations 14, blood pressure 133/74. Neck: CVP less than 6 cm. Lungs: Clear, anterior, lateral, and posterior. Heart: Regular rhythm and rate, without murmur or S3. Abdomen: Soft. Skin is warm and dry. URINE OUTPUT: 1700 mL. LABORATORIES: From today, white count 6970, hematocrit 48, platelet count 167,000. Sodium 140, potassium 4.6, chloride 96, bicarbonate 32, BUN 15, creatinine 0.7, blood sugar 246, 280, 273. Thyroid looked good. T4 was 1.10. TSH was 0.63. ASSESSMENT AND PLAN: 1. A 55-year-old white female with a history of chronic obstructive pulmonary disease and obstructive apnea who presented with shortness of breath, but also with some confusion and agitation and mood swings. She has home O2. She does not have CPAP that she wears at night. Going to continue the BiPAP therapy, bronchodilators, empiric antibiotics, and intravenous steroids, and see if we can get her set up to get a CPAP at home. Apparently, she did have a sleep study in [place] and will see if we can get a copy of that. 2. Axillary adenitis. Will use some antibacterial soap and maybe put some Bactroban under that. Will ask Yesenia Tran to look at it to see if she has any suggestions on how to prevent that. 3. Diabetes mellitus. Blood sugars continue to pattern. She is really around the 270s to 280s, so may need to make some adjustments to that, as well.
[2016-05-06] MEDS: SEPTRA DS PO SCH ×2 (15:16→20:51)
[2016-05-06] MEDS: BACTROBAN OINTMENT TOP SCH ×2 (17:02→17:16)
[2016-05-06] MEDS: ZOCOR PO SCH (20:51)
[2016-05-07] MEDS: DUONEB (A & A) INH SCH ×6 (03:50→23:05)
[2016-05-07] MEDS: HUMULIN R SUBQ SCH ×4 (06:35→20:11)
[2016-05-07] MEDS: PROTONIX PO SCH (06:36)
[2016-05-07] MEDS: SOLU-MEDROL IV SCH ×2 (06:36→20:10)
[2016-05-07] MEDS: NOVOLOG MIX 70/30 SUBQ SCH ×3 (06:50→15:50)
[2016-05-07] MEDS: PULMICORT INH SCH ×2 (08:03→19:30)
[2016-05-07] MEDS: NICODERM PATCH TD SCH (09:07)
[2016-05-07] MEDS: BACTROBAN OINTMENT TOP SCH ×3 (09:08→20:12)
[2016-05-07] MEDS: LANTUS SUBQ SCH ×2 (09:08→20:11)
[2016-05-07] MEDS: PRINIVIL PO SCH (09:09)
[2016-05-07] MEDS: SEPTRA DS PO SCH ×2 (09:09→20:10)
[2016-05-07] MEDS: LASIX PO SCH (09:10)
[2016-05-07] MEDS: LOVENOX SUBQ SCH (09:10)
[2016-05-07] MEDS: ASPIRIN PO SCH (09:10)
[2016-05-07] MEDS: CORDARONE PO SCH (09:10)
[2016-05-07] MEDS ORDERED: LASIX IV ONE (11:47)
[2016-05-07] MEDS: ATIVAN IV PRN ×2 (12:20→17:16)
--- NOTE | 2016-05-07 12:40 | PROGRESS NOTE ---
DATE: 05/07/2016 SUBJECTIVE: She says she is doing terrible. She was crying. She is so anxious she wants to be back on her lorazepam. Her breathing is better. OBJECTIVE: Vital signs: Temperature 98.5 degrees, pulse 98, respirations 22, blood pressure 156/75. HEENT: Pupils are equal, round, reactive. Respiratory: Lungs are clear anterolateral Cardiovascular: Regular rate without murmur or S3. Abdomen: Soft. Skin is warm and dry. LABORATORY: Urine output is 3500, blood sugars 292, 221, 271. Reviewed lab from yesterday. Hematocrit stable. Blood sugars coming down a little bit to 254-290, 321 and 271. ASSESSMENT AND PLAN: 1. Chronic obstructive pulmonary disease, shortness of breath exacerbation, obstructive sleep apnea, hypoventilation syndrome. Still working on plans to try and get her CPAP at home. She has apparently had a sleep study in [place]. So we will see if we get better air exchange and gas exchange seems to be better. She has chronic hypoxia and CO2 retention. 2. Axillary adenitis continue topical treatment. 3. Diabetes mellitus type 2. I started her on split insulin twice a day. We will see if that will help get sugars down. 4. On amiodarone for history of atrial fibrillation. 5. General anxiety and panic attacks. Put her back on her lorazepam and she is already on Lantus insulin 30 units b.i.d. and she may very well need 70 30 twice a day as well. She is on a sliding scale at this time. We started at 70/30 10 units twice a day.
[2016-05-07] MEDS: ZOCOR PO SCH (20:23)
[2016-05-08] MEDS: DUONEB (A & A) INH SCH ×5 (03:35→19:50)
[2016-05-08] MEDS: PROTONIX PO SCH (06:37)
[2016-05-08] MEDS: HUMULIN R SUBQ SCH ×4 (06:37→21:00)
[2016-05-08] MEDS ORDERED: INSULIN PEN NEEDLES ONE (06:40)
[2016-05-08] MEDS: NOVOLOG MIX 70/30 SUBQ SCH ×3 (06:56→16:14)
[2016-05-08] MEDS: PULMICORT INH SCH (07:58)
[2016-05-08] MEDS: SOLU-MEDROL IV SCH ×2 (08:00→21:05)
[2016-05-08] MEDS: LASIX PO SCH (09:00)
[2016-05-08] MEDS: ASPIRIN PO SCH (09:00)
[2016-05-08] MEDS: PRINIVIL PO SCH (09:00)
[2016-05-08] MEDS: NICODERM PATCH TD SCH (09:00)
[2016-05-08] MEDS: LOVENOX SUBQ SCH (09:00)
[2016-05-08] MEDS: CORDARONE PO SCH (09:00)
[2016-05-08] MEDS: SEPTRA DS PO SCH ×2 (09:00→21:05)
[2016-05-08] MEDS: LANTUS SUBQ SCH ×2 (09:10→21:05)
[2016-05-08] MEDS: CELEXA PO SCH (09:40)
[2016-05-08] MEDS ORDERED: CELEXA ONE (10:49)
[2016-05-08] MEDS ORDERED: KLONOPIN ONE (10:49)
[2016-05-08] MEDS: KLONOPIN PO SCH ×2 (10:55→21:05)
--- NOTE | 2016-05-08 14:19 | PROGRESS NOTE ---
DATE: 05/08/2016 SUBJECTIVE: Ms. Browne feels a little better than yesterday. I think the Ativan helped. Her breathing is definitely better. She is eating some. Still very anxious. I am going to try her on some Klonopin to see if a little longer-acting benzodiazepine will help. Her breathing is definitely better, and she is not as restless. OBJECTION: Exam: Vital signs stable. Lungs are clear in all lung garcia, anterior, lateral, posterior. Cardiovascular: Regular rhythm and rate without murmur or S3. Abdomen is soft. Skin is warm and dry. ASSESSMENT AND PLAN: 1. Chronic obstructive pulmonary disease, oxygen dependent. CO2 retention. Hypoventilation syndrome with morbid obesity. Continue bronchodilators. I decreased her steroids. Continue the present antibiotics and supplementary oxygen. She has a machine at home. It sounds like it is a BiPAP. I would like to see if we can get a look at it and see if we can get her ready to go home with that possibly the first of the week. 2. I put her on some Klonopin. I am going to start Klonopin today, 0.5 in the morning and then 1 mg at night. I am going to let her try some Celexa too at 20 mg daily and see if this will help with her severe general anxiety and panic attacks. 3. Morbid obesity. 4. Axillary adenitis. Continue Bactrim. I encouraged her to bathe with antibiotic soap regularly. cc: Devonte Richmond MD
--- NOTE | 2016-05-08 15:53 | Diag Imaging Result Document ---
PROCEDURE NAME: CHEST-PORTABLE - 05/08/2016 AP PORTABLE CHEST: TIME: 0555 hours. FINDINGS: There is ill-defined opacity in both lung bases. This is worse, particularly in the right lower lobe, than on 01/20/2016 and 05/05/2016. IMPRESSION: Atelectasis versus pneumonia, right lower lobe.
[2016-05-08 16:29] LABS: ALLEN TEST YES; BE 7.2 mmoll (-3.0-3.0); BLOOD TYPE ARTERIAL; DRAW SITE R RADIAL; METHB 1.6 % (0.0-1.5); O2(CT) 17.8 mL/dL (15.0-23.0); PO2(98.6) 50 mmHg (60-100); SAMPLE BLOOD; SAO2 90.8 % (95.0-100.0); THB 14.5 g/dL (11.5-17.4); pH(98.6) 7.36 (7.35-7.45)
[2016-05-08 17:24] LABS: AGAP 11; ALBUMIN 3.6 g/dL (3.5-5.0); ALKALINE PHOSPHATASE 71 U/L (32-104); BUN 30 mg/dL (8-22); CALCIUM 9.1 mg/dL (8.8-10.2); CHLORIDE 94 mmol/L (98-107); COSMO 296; GOT 5 U/L (10-30); GPT 12 U/L (10-36); MAGNESIUM 2.1 mg/dL (1.5-2.7); POTASSIUM 4.5 mmol/L (3.5-5.1); SODIUM 137 mmol/L (136-145); TCO2 32 mmol/L (25-35); TOTAL BILIRUBIN 0.29 mg/dL (0.20-1.00); TOTAL PROTEIN 6.1 g/dL (6.3-8.3)
[2016-05-08 18:11] LABS: MODALITY BI PAP; PCO2(98.6) 62 mmHg (35-45)
[2016-05-08] MEDS: ZOCOR PO SCH (21:05)
[2016-05-09] MEDS: DUONEB (A & A) INH SCH ×6 (00:19→22:55)
[2016-05-09] MEDS: BACTROBAN OINTMENT TOP SCH ×5 (00:34→17:21)
[2016-05-09] MEDS: ATIVAN IV PRN ×5 (02:44→22:59)
[2016-05-09] MEDS: NOVOLOG MIX 70/30 SUBQ SCH ×3 (06:17→15:39)
[2016-05-09] MEDS: HUMULIN R SUBQ SCH ×4 (06:17→22:58)
[2016-05-09] MEDS: PROTONIX PO SCH (06:18)
[2016-05-09] MEDS: TYLENOL PO PRN ×2 (06:24→20:13)
[2016-05-09] MEDS: PULMICORT INH SCH (08:19)
[2016-05-09] MEDS: SOLU-MEDROL IV SCH ×2 (09:37→20:00)
[2016-05-09] MEDS: LOVENOX SUBQ SCH (09:37)
[2016-05-09] MEDS: CELEXA PO SCH (09:38)
[2016-05-09] MEDS: ASPIRIN PO SCH (09:38)
[2016-05-09] MEDS: LASIX PO SCH (09:39)
[2016-05-09] MEDS: NICODERM PATCH TD SCH (09:39)
[2016-05-09] MEDS: KLONOPIN PO SCH ×2 (09:39→20:00)
[2016-05-09] MEDS: PRINIVIL PO SCH (09:39)
[2016-05-09] MEDS: SEPTRA DS PO SCH ×2 (09:39→20:00)
[2016-05-09] MEDS: LANTUS SUBQ SCH ×2 (09:39→20:01)
[2016-05-09] MEDS: CORDARONE PO SCH (09:39)
--- NOTE | 2016-05-09 12:09 | PROGRESS NOTE ---
DATE: 05/09/2016 SUBJECTIVE: Ms. Browne is feeling better. A little calmer. She brought in her machine. It looks like it is a CPAP machine and we will see if respiratory can maybe help us get that set up for her at home. She definitely needs it at nighttime. Her breathing is more comfortable. She is much less anxious, although she still has spells and in her words, still some tremendous mood swings. She becomes very hateful. PHYSICAL EXAMINATION: Vital Signs: Blood pressure 119/75, pulse 80, respirations 19, temperature 97.9 degrees. Lungs: Clear in all lung garcia anterolateral. Cardiovascular Examination: Regular rhythm and rate without murmur or S3. Abdomen: Soft. Skin: Is warm and dry. Is and Os: Urine output is 1500 mL. ASSESSMENT AND PLAN: 1. Obstructive apnea, underlying chronic obstructive pulmonary disease, chronic CO2 retention, and hypoxemia. Continue bronchodilators. We have decreased her steroids. She will need CPAP at night. She is using BiPAP now. 2. Suspect polycystic ovary syndrome. 3. General anxiety, panic attacks. I started some Klonopin which seems to be helping. I also started her on Celexa. 4. Morbid obesity. Encouraged weight reduction and low-calorie, low carbohydrate diet. 5. Axillary adenitis which we are using topical care. 6. We will review orders. Getting vitamin D, ergocalciferol 50,000 units a day, Ultram 50 mg every 8 hours. She is on Bactrim Double Strength 1 twice a day, Zocor 20 mg every evening, Protonix 40 mg a day, nicotine patch 21 mg a day, Bactroban on her axilla 3 times a day, methylprednisone 40 mg intravenous every 12 hours (I will cut down that to 20 mg every 12), Prinivil 10 mg a day. She is on NovoLog 70/30 with 10 units before her meal at breakfast. She is getting Lantus 30 units twice a day, Lasix 40 mg by mouth every morning. We started her on Klonopin 0.5 mg in the morning and 1 mg at night, Celexa 20 mg a day, Pulmicort inhaler. She is on amiodarone 200 mg a day. Appears to remain in sinus rhythm. Rate appears controlled. cc: Devonte Richmond MD
[2016-05-09] MEDS: ZOCOR PO SCH (20:00)
[2016-05-10] MEDS: ATIVAN IV PRN ×2 (03:03→07:01)
[2016-05-10] MEDS: DUONEB (A & A) INH SCH ×3 (03:14→11:16)
[2016-05-10] MEDS: PROTONIX PO SCH (06:34)
[2016-05-10] MEDS: HUMULIN R SUBQ SCH ×2 (06:34→11:05)
[2016-05-10] MEDS: NOVOLOG MIX 70/30 SUBQ SCH ×2 (06:35→11:06)
[2016-05-10] MEDS: PULMICORT INH SCH (07:32)
[2016-05-10] MEDS: ASPIRIN PO SCH (08:16)
[2016-05-10] MEDS: SOLU-MEDROL IV SCH (08:16)
[2016-05-10] MEDS: CORDARONE PO SCH (08:17)
[2016-05-10] MEDS: KLONOPIN PO SCH (08:17)
[2016-05-10] MEDS: LANTUS SUBQ SCH (08:17)
[2016-05-10] MEDS: CELEXA PO SCH (08:17)
[2016-05-10] MEDS: LASIX PO SCH (08:17)
[2016-05-10] MEDS: PRINIVIL PO SCH (08:17)
[2016-05-10] MEDS: SEPTRA DS PO SCH (08:17)
[2016-05-10] MEDS: LOVENOX SUBQ SCH (08:18)
[2016-05-10] MEDS: NICODERM PATCH TD SCH (08:18)
[2016-05-10] MEDS: BACTROBAN OINTMENT TOP SCH ×2 (08:18→15:28)
[2016-05-10] MEDS ORDERED: INSULIN PEN NEEDLES ONE (09:12)
[2016-05-10 10:58] VITALS: BP 137/92
--- NOTE | 2016-05-10 22:36 | DISCHARGE SUMMARY ---
ADMISSION DATE: 05/05/2016 DISCHARGE DATE: 05/10/2016 HISTORY: The patient is a 55-year-old with history of morbid obesity, COPD, chronic O2 use, paroxysmal atrial fib, hyperlipidemia, diabetes mellitus type 2, brought into the emergency room. Her main complaint was she was very irritable, very forgetful, more short of breath, and this irritability has gotten worse. She has general anxiety. A lot of things are going on, feels like she is having panic attacks. She did not report any chest pain, but often feels short of breath and very tearful. She had not taken any of her Ativan in awhile, and diagnosed with obstructive sleep apnea, and is supposed to be on CPAP. She does have a machine that belonged to her father, and she has not been able to use it. She apparently has had some sleep studies done in [employer]. At that time, they recommend I think BiPAP. She has been seen by Dr. Jeffers in the past. She had a pulmonary angiogram in 01/15/2016, that showed diffuse ill-defined nodular densities at that time, left lower lobe consolidation at this time. CT of the head, no evidence of intracranial pathology. Chest x-ray poor inspiration, prominent heart. No definite pathology. 1. So, she was admitted with exacerbation of COPD and obstructive apnea, chronic CO2 retention and chronic hypoxemia, and we did put her on Bi-PAP, and a we gave her some fluid, and O2 sat's improved, and her breathing improved. 2. Obstructive apnea. She brought in her machine that belonged to her father, and I recommended that she take this machine and get the settings set for her, follow up with Pulmonary. 3. Metabolic encephalopathy. I think agitation, mainly severe anxiety. I did put her on some Klonopin, which seemed to help. We will let her use Ativan p.r.n. Her blood sugars were watched and fairly well controlled. 4. Paroxysmal atrial fibrillation, she remained, appeared to be in sinus rhythm. Rate seemed to be controlled. 5. Morbid obesity. Encouraged her to pursue some weight reduction. Echocardiogram showed good left ventricular function, some diastolic dysfunction. Really no elevation right-sided pressure, and of course we gave her a nicotine patch. She really wanted go home on 05/10/2016. So, we will discharge her home. FOLLOWUP: She has follow up with portal developer, follow up with her primary care, see if she can get her CPAP machine started. DISCHARGE MEDICATIONS: She is going to go home on Cordarone 200 mg a day, aspirin 325 mg a day, Pulmicort 0.5 mg b.i.d., Celexa, I started her on 20 mg q.a.m., Klonopin 0.5 mg daily, and then 1 mg at bedtime, vitamin D 50,000 units daily, Lasix 40 mg a day, Lantus, NovoLog 70/30, 10 units in the morning and at supper time, and Lantus 30 units b.i.d. with some Prinivil 10 mg daily, Ativan at 1 mg 2 to 3 times a day as needed. NicoDerm patch 21 mg daily, Protonix 40 mg a day, Zocor 20 mg a day, Ultram 50 mg q.8 hours p.r.n. pain. We will stop her Septra. She was taking that 1 twice a day. cc: Devonte Richmond MD
== END 2016-05-10 15:42 | disposition home health service (06) ==
LOC: ED 13:55 → 4N 20:02
PROVIDERS: ATTEND Emergency Medicine